=== PATIENT | female | born 1975 | race Caucasian/White ===

== ENCOUNTER 2016-09-22 21:51 | Emergency (ER) | payer OTHER ==
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
[~2016-09-22 21:51] MED LIST: ALBUTEROL17 GM INH; AMOXICILLIN PO; AMOXIL875 MG PO; CIPRO PO; DIFLUCAN PO; NO MEDICATIONS; PREDNISONE PO; PYRIDIUM PO; ROBITUSSIN A-C10 ML PO; VOLTAREN75 MG PO; ZOFRANODT PO
[2016-09-24] MEDS ORDERED: VOLTAREN75 MG PO (16:39)
== END 2016-09-22 23:00 | disposition home or self-care (01) ==
LOC: CFTX 21:51
DX: S39.012A Strain of muscle, fascia and tendon of lower back, initial encounter (principal); S70.02XA Contusion of left hip, initial encounter; S60.212A Contusion of left wrist, initial encounter; F17.210 Nicotine dependence, cigarettes, uncomplicated; F41.9 Anxiety disorder, unspecified; V49.50XA Passenger injured in collision with unspecified motor vehicles in traffic accident, initial encounter; Y92.410 Unspecified street and highway as the place of occurrence of the external cause
CPT/HCPCS: 72100; 73110; 73502; 84703; 99284; J1885

== ENCOUNTER 2016-09-24 18:04 | Emergency (ER) | payer OTHER ==
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
== END 2016-09-24 18:24 | disposition home or self-care (01) ==
LOC: SED 18:04
DX: S20.211A Contusion of right front wall of thorax, initial encounter (principal); S40.011A Contusion of right shoulder, initial encounter; V49.10XA Passenger injured in collision with unspecified motor vehicles in nontraffic accident, initial encounter
CPT/HCPCS: 71101; 73030; 99284